=== PATIENT | male | born 1965 | race Caucasian/White ===

== ENCOUNTER 2024-10-08 09:58 | Outpatient (AMB) | payer BC, SELFPAY ==
--- NOTE | 2024-10-08 10:15 | MHC.OFFVIS ---
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 He describes his pain as sharp in nature. His back pain has gotten worse over the last few years in spite of continued non operative treatments. He was evaluated by Dr. Ford from [place] in the past. No surgery was recommended at that time. The patient also reports intermittent discomfort in both of his hips and both of his knees. He denies any fevers or chills. He has undergone bilateral total hip replacement surgeries as well as right total knee replacement surgery. 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* Physical Exam Vital Signs: BMI result Body Mass Index 35.7 Const Other: Well-nourished well-developed very friendly male awake alert and oriented x3 in no acute distress Back/Spine/Pelvis Other: Low back examination shows left-sided paraspinal muscle tenderness, pain with range of motion, positive straight leg raise test on the left at 70 degrees Extrem Other: Bilateral hip examination shows that the surgical incisions are well healed, no erythema, mild tenderness over his bursa, no overlying skin lesions Left knee examination shows a minimal effusion, palpable crepitus with range of motion, pain with range of motion Right knee examination shows that the surgical incision is well healed, no erythema, full active extension and flexion to 120 degrees Results Reviewed Results Reviewed: X-rays of the patient's bilateral hip show total hip arthroplasties in good position with no signs of loosening, no acute bony abnormalities X-ray of the patient's right knee shows a total knee arthroplasty in good position with no signs of loosening, no acute bony abnormalities X-rays of the patient's left knee shows moderate to severe joint space narrowing most significant medial compartment, subchondral sclerosis Assessment & Plan Assessment & Plan (1) Bilateral knee pain: Code(s): M25.561 - Pain in right knee; M25.562 - Pain in left knee Category: Medical (2) Bilateral hip pain: Code(s): M25.551 - Pain in right hip; M25.552 - Pain in left hip Category: Medical (3) Low Back Pain: Code(s): M54.50 - Low back pain, unspecified Plan Mr. Stewart continues to do fairly well after undergoing bilateral total hip replacement surgeries as well as right total knee replacement surgery. He does have left knee pain due to degenerative joint disease. He wishes to hold off on left total knee replacement surgery if at all possible. The patient also has low back pain which radiates into his left leg most likely due to lumbar stenosis and possible disc herniation. Thus, I will send the patient for an MRI of his lumbar spine for further evaluation. I will contact him by phone once the MRI results are available. Feel free to call me at any time should questions regarding his orthopedic management arise. I spent 20 minutes in reviewing the patient's records and imaging studies, seeing the patient and documenting in the medical record. Orders: Orders XR Knee Michael 3V Today M25.561 - Pain in right knee, M25.562 - Pain in left knee XR pelvis 1-2V Today M25.551 - Pain in right hip, M25.552 - Pain in left hip Coding Level of Care Code Est Pt Level 3 (07301) Complex EM visit Add On G2211 Diagnoses Bilateral knee pain M25.561; M25.562 Bilateral hip pain M25.551; M25.552 Low Back Pain M54.50
[2024-10-08 10:19] VITALS: BMI 35.7
--- OUTSIDE RECORDS SUMMARY | 2024-10-08 10:30 | XMS_ITS | Clinical Summary ---
Author Organization [facility] Address [address] [place] [address] Care Team Providers Care Director Global Strategic Publisher Sales Name Role Phone Flynn Stewart Primary Care Provider Social History Tobacco Use Types Packs/Day Years Used Date Smoking Tobacco: Never Assessed Sex and Gender Information Value Date Recorded Sex Assigned at Not on file Legal Sex Male 1:07 AM EDT Gender Identity Not on file Sexual Orientation Not on file Plan of Treatment Health Maintenance Due Date Last Done Comments Hepatitis C Screening 1965 DTaP/Tdap/Td (1 - Tdap) 1983 Hep B (1 of 3 - 19+ 3-dose series) 1984 Pneumococcal 50+ years (1 of 1 - PCV) 2015 Zoster (Shingrix) (1 of 2) 2015 COVID-19 Vaccine (2023-2 5 season) 2023 Influenza (#1) 2024 HPV Vaccine (No Doses Required) Completed Hep A Aged Out No longer eligi ble based on patient's age to complete this topic Hib Aged Out No longer eligi ble based on patient's age to complete this topic Meningococcal ACWY Aged Out No longer eligible based on patient's age to complete this topic Insurance [facility] [place] [address] [facility] Care Teams Director Global Strategic Publisher Sales Relationship Specialty Start Date End Date Flynn Stewart [facility] [address] [place] [address] PCP - General 07/02/09
--- OUTSIDE RECORDS SUMMARY | 2024-10-08 10:30 | XMS_ITS | Encounter Summary ---
Author Organization [facility] Address [address] [place] [address] Care Team Providers Care Percussion Instrument Repairer Name Role Phone Flynn Stewart DO Primary Care Provider [phone] Encounter Details Date Type Department Care Team (Late Contact Info) Description 07/30/2024 Lab Requisition [facility] - Main Lab [address] [facility] [place] [id number] Flip Myles MD [address] [facility] [address] [place] [address] Elevated prostate specific antigen (PSA) Social History Tobacco Use Types Packs/Day Years Used Date Smoking Tobacco: Former Cigarettes Q uit: 11/04/2020 Smokeless Tobacco: Never Alcohol Use Standard Drinks/Week Comments Yes 1 (1 standard drink = 0.6 oz pur e alcohol) Sex and Gender Information Value Date Recorded Sex Assigned at Not on file Legal Sex Male 11:09 AM EST Gender Identity Not on file Sexual Orientation Not on file documented as of this encounter Plan of Treatment Upcoming Encounters Date Type Department Care Team (Late Contact Info) Description 06/30/2025 3:00 PM EDT Office Visit Pulmonolgy - [place] [address] [facility] [address] [place] [address] Mallory Lott MD [address] [facility] [address] [place] [address] documented as of this encounter Procedures Procedure Name Priority Date/Time Associated Diagnosis Comments AP OUTSIDE CONSULT Routine 07/26/2024 Elevated prostate specific antigen (PSA) documented in this encounter Results * Anatomic pathology outside consult (07/26/2024) Final Diagnosis A. Prostate, Left Middle Parks Biopsy: Acinar adenocarcinoma, conventional (usual) type, Maximiliano score 3 + 3 = 6 (Grade group 1). The carcinoma involves 55-60% of the tissue submitted for review and spans approximately 10 mm in greatest dimension in a single core. B. Prostate, Left Lateral Parks Biopsy: Acinar adenocarcinoma, conventional (usual) type, Bend score 3 + 3 = 6 (Grade group 1). The carcinoma involves approximately 50% of the tissue submitted for review and spans approximately 15 mm in greatest dimension in a single core (two discontinuous foci). C. Prostate, Left Middle Middle Biopsy: Acinar adenocarcinoma, conventional (usual) type, Bend score 3 + 3 = 6 (Grade group 1). The carcinoma involves approximately 50% of the tissue submitted for review and spans approximately 13 mm in greatest dimension in a single core (two discontinuous foci). D. Prostate, Left Lateral Middle Biopsy: Acinar adenocarcinoma, conventional (usual) type, Maximiliano score 3 + 3 = 6 (Grade group 1). The carcinoma involves 70-75% of the tissue submitted for review and spans approximately 13 mm in greatest dimension in a single core. E. Prostate, Left Middle Base Biopsy: Atypical small acinar proliferation, suspicious for adenocarcinoma. F. Prostate, Left Lateral Base Biopsy: Atypical small acinar proliferation, suspicious for adenocarcinoma. G. Prostate, Right Middle Parks Biopsy: Atypical small acinar proliferation. H. Prostate, Right Lateral Parks Biopsy: Acinar adenocarcinoma, conventional (usual) type, Bend score 3 + 3 = 6 (Grade group 1). The carcinoma involves 20-25% of the tissue submitted for review and spans approximately 10 mm in greatest dimension in a single core (two small, discontinuous foci). I. Prostate, Right Middle Middle Biopsy: Atypical small acinar proliferation. Note: On hematoxylin and eosin-stained sections, a population of crowded glands of indeterminate nature is identified. A multiplex immunohistochemical study including AMACR, high molecular weight cytokeratin and p63 was performed to further characterize the proliferation of small glands. The glands of interest lack granular cytoplasmic expression of AMACR and most acini show a at least a discontinuous associated basal cell layer. Although the gland crowding and some cytologic features are atypical, the presence of a discontinuous basal cell layer argues against a diagnosis of carcinoma. J. Prostate, Right Lateral Middle Biopsy: Benign prostate tissue. K. Prostate, Right Middle Base Biopsy: Atypical small acinar proliferation. Note: On hematoxylin and eosin-stained sections, a population of crowded glands of indeterminate nature is identified. A multiplex immunohistochemical study including AMACR, high molecular weight cytokeratin and p63 was performed to further characterize the proliferation of small glands. The glands of interest lack granular cytoplasmic expression of AMACR and most acini show a at least a discontinuous associated basal cell layer. Although the gland crowding and some cytologic features are atypical, the presence of a discontinuous basal cell layer argues against a diagnosis of carcinoma. L. Prostate, Right Lateral Base Biopsy: Acinar adenocarcinoma, conventional (usual) type, Maximiliano score 3 + 3 = 6 (Grade group 1). The carcinoma involves less than 5% of the tissue submitted for review and spans less than 1 mm in greatest dimension in a single core. 5 1:47 PM EDT [facility] Comment Cascara Bark Cutter slide(s) from this case have been presented at Anatomic Pathology Intradepartmental Review Conference on 07/31/24 and 08/01/24. 5 1:47 PM EDT [facility]) [facility] Clinical Information Elevated PSA R97.20 PSA: 5.6 (06/17/24) [id number] 5 1:47 PM EDT [facility] Gross Description A. Prostate, Left Middle Parks Biopsy: Received, properly labeled, are two H and E stained slides and two unstained slides. B. Prostate, Left Lateral Parks Biopsy: Received, properly labeled, are two H and E stained slides and two unstained slides. C. Prostate, Left Middle Middle Biopsy: Received, properly labeled, are two H and E stained slides and two unstained slides. D. Prostate, Left Lateral Middle Biopsy: Received, properly labeled, are two H and E stained slides and two unstained slides. E. Prostate, Left Middle Base Biopsy: Received, properly labeled, are two H and E stained slides and two unstained slides. F. Prostate, Left Lateral Base Biopsy: Received, properly labeled, are two H and E stained slides and two unstained slides. G. Prostate, Right Middle Parks Biopsy: Received, properly labeled, are two H and E stained slides and two unstained slides. H. Prostate, Right Lateral Parks Biopsy: Received, properly labeled, are two H and E stained slides and two unstained slides. I. Prostate, Right Middle Middle Biopsy: Received, properly labeled, are two H and E stained slides and two unstained slides. J. Prostate, Right Lateral Middle Biopsy: Received, properly labeled, are two H and E stained slides and two unstained slides. K. Prostate, Right Middle Base Biopsy: Received, properly labeled, are two H and E stained slides and two unstained slides. L. Prostate, Right Lateral Base Biopsy: Received, properly labeled, are two H and E stained slides and two unstained slides. /rc 5 1:47 PM EDT [facility] Disclaimer Unless otherwise specified, all tissue is 10% NB formalin fixed and paraffin embedded. Technical pathology services provided by [facility] at [address] [place] [address] [address], [place] [address] (CLIA #[id number]/Sarah Forbes MD, Services Tech) 1:47 PM EDT [facility] Tissue Prostate / Unknown 07/26/20242024 9:04 AM EDT Tissue specimen (specimen) Prostate / Unknown 07/26/2024 07/30/2024 9: 06 AM EDT Tissue specimen (specimen) Prostate / Unknown 07/26/2024 07/30/2024 9: 06 AM EDT Tissue specimen (specimen) Prostate / Unknown 07/26/2024 07/30/2024 9: 06 AM EDT Tissue specimen (specimen) Prostate / Unknown 07/26/2024 07/30/2024 9: 06 AM EDT Tissue specimen (specimen) Prostate / Unknown 07/26/2024 07/30/2024 9: 06 AM EDT Tissue specimen (specimen) Prostate / Unknown 07/26/2024 07/30/2024 9: 06 AM EDT Tissue specimen (specimen) Prostate / Unknown 07/26/2024 07/30/2024 9: 06 AM EDT Tissue specimen (specimen) Prostate / Unknown 07/26/2024 07/30/2024 9: 06 AM EDT Tissue specimen (specimen) Prostate / Unknown 07/26/2024 07/30/2024 9: 06 AM EDT Tissue specimen (specimen) Prostate / Unknown 07/26/2024 07/30/2024 9: 06 AM EDT Tissue specimen (specimen) Prostate / Unknown 07/26/2024 07/30/2024 9: 06 AM EDT us Flip Myles MD LAB PATHOLOGY ORDERABLES Final Result [facility] [address] [place] [address], documented in this encounter Visit Diagnoses Diagnosis Elevated prostate specific antigen (PSA) documented in this encounter Care Teams Percussion Instrument Repairer Relationship Specialty Start Date End Date Flynn Stewart DO [address] [place], [place] PCP - General Family Medicine 09/07/17 documented as of this encounter
--- OUTSIDE RECORDS SUMMARY | 2024-10-08 10:30 | XMS_ITS | Clinical Summary ---
Author Organization [facility] Address [address] [id number] Care Team Providers Care Slip Box Changer Name Role Phone Flynn Stewart MD Primary Care Provider [phone] Allergies Active Allergy Reactions Criticality Noted Date Comments Bee Pollen Swelling,Other (See Comments) Medium 03/12/2021 Bee sting swelling at site Medications Medication Sig Dispensed Refills Start Date End Date Status Cetirizine HCl (ZyrTEC ALLERGY) 10 MG CAPS daily. 0 Active amoxicillin (AMOXIL) 500 MG tablet Take 4 tabs 1 hour prior to dental procedure 20 tablet 3 05/06/2021 Active rosuvastatin (CRESTOR) tablet 5 mg Take 1 tablet (5 mg total) by mouth daily. 0 07/15/2022 Active Active Problems Problem Noted Date Diagnosed Date Spinal stenosis of lumbar re gion with neurogenic claudication 10/13/2022 Lumbar spondylosis 10/13/2022 Arthritis of left acromioclavicular joint 2019 Internal impingement of left shoulder 08/01/2019 Greater trochanteric bursitis of left hip 2017 Immunizations Name Administration Dates Next Due Covid-19 (Moderna 12+) 100mcg/0.5mL dosage 01/23 Covid-19 (Pfizer) Dilution Required 06/10/2020,0 05/20/2020 Social History Tobacco Use Types Packs/Day Years Used Date Smoking Tobacco: Former Cigarettes 1 40 Q uit: 11/2020 Smokeless Tobacco: Never Alcohol Use Standard Drinks/Week Comments Yes 1 (1 standard drink = 0.6 oz pur e alcohol) Sex and Gender Information Value Date Recorded Sex Assigned at Male 04/01/2021 8:33 AM EST Gender Identity Male 04/01/2021 8:33 AM EST Sexual Orientation Not on file Job Start Date Occupation Industry Not on file Not on file Not on file Last Filed Vital Signs Vital Sign Reading Time Taken Comments Blood Pressure 132/77 10/13/2022 9:24 AM EDT Pulse 58 10/13/2022 9:24 AM EDT Temperature 36.8 C (98.3 F) 04/23/2021 6:08 AM EST Respiratory Rate 16 04/23/2021 8:03 AM EST Oxygen Saturation 97% 04/23/2021 8:03 AM EST Inhaled Oxygen Concentration - - Weight 103.4 kg (228 lb) 10/13/2022 9:24 AM EDT Height 172.7 cm (5' 8 ) 10/13/2022 9:24 AM EDT Body Mass Index 34.67 10/13/2022 9:24 AM EDT Plan of Treatment Health Maintenance Due Date Last Done Comments Hepatitis B Vaccines (1 of 3 - 3-dose series) 1965 Hepatitis C Screening 1965 Lung Cancer Screening (Low Dose CT) 1965 Depression Screening 1977 BMI Counseling 1983 Preventative Health Evaluation 1983 Colon Cancer Screening (Colonoscopy) 2010 Shingrix-Zoster Vaccine (1 o f 2) 2015 COVID-19 Vaccine (2023-2 5 season) 2023 01/23/2021, 06/10/2020, 05/20/2020 Influenza Vaccine (#1) 2024 2, 03/18/2012 DTap / Tdap / Td (2 - Td or Tdap) 08/19/2031 08/18/2021 Pneumococcal Vaccine Aged Out No long er eligible based on patient's age to complete this topic RSV Ped < 20 months Aged Out No longe r eligible based on patient's age to complete this topic Medical Devices Implanted Type Area Veterinary Microbiologist Device Identifier Shelf Expiration Date Model / Serial / Lot Cement Bone Surg Simplex Radiopq Stry-How [id number] 092 - [id number] Implanted:Qty: 1 on 04/22/2021 by Saul Woo MD at [facility] [id number] 02/02/2023 6191-1-010 / / [id number] Cement Bone Surg Simplex Radiopq Stry-Howm [id number] [id number] - [id number] Implanted:Qty: 1 on 04/22/2021 by Saul Woo MD at [facility] [id number] 02/02/2023 6191-1-010 / / [id number] Knee Fem Ps Trthln Sz 4 Rt Stry-Howm [id number] 740 - [id number] Implanted:Qty: 1 on 04/22/2021 by Saul Woo MD at [facility] and [facility] [employer] [id number] 01/26/2026 5515-F-[id number] / / [id number] Knee Baseplt Tib Cmnt Sz4 Stry-Howm [id number] 190 - [id number] Implanted:Qty: 1 on 04/22/2021 by Saul Woo MD at [facility] and [facility] [employer] [id number] 12/06/2025 5520-B-400 / / [id number] Knee Tib Insrt Ps-X3 [id number] Stry-Howm [id number] 750 - [id number] Implanted:Qty: 1 on 04/22/2021 by Saul Woo MD at [facility] and [facility] [employer] [id number] 11/23/2025 5532-G-[id number] / / [id number] Knee Patella Asym X3 29x9mm Stry-Howm [id number] 282 - [id number] Implanted:Qty: 1 on 04/22/2021 by Saul Woo MD at [facility] and [facility] [employer] [id number] 11/24/2025 5551-G-299 / / [id number] Peg Fix Femoral Distal Stry-Howm [id number] 704 - [id number] Implanted:Qty: 1 on 04/22/2021 by Saul Woo MD at [facility] and [facility] [employer] [id number] 06/29/2025 5575-X-000 / / [id number] Advance Directives For more information, please contact: [phone] Latest Code Status on File Code Status Date Activated Date Inactivated Comments Full Code 04/22/2021 12:39 PM 04/23/2021 5:56 PM This code status was ascertained in the following way: discussion with patient . Code Status History Code Status Date Activated Date Inactivated Comments Full Code 04/22/2021 7:26 AM 04/22/2021 12:39 PM This code status was ascertained in the following way: discussion with patient . Care Teams Slip Box Changer Relationship Specialty Start Date End Date Flynn Stewart MD [address] [place] [address] PCP - General Family Medicine 09/07/17
--- OUTSIDE RECORDS SUMMARY | 2024-10-08 10:30 | XMS_ITS ---
Author Name [facility] History of Medication Use Medication Directions Dispensed Refills Start Date End Date Stat us amoxicillin 500 mg tablet Take 4 tabs 1 hour prior to dental procedure. 07/20/2022 active rosuvastatin (CRESTOR) tablet 5 mg Take 1 tablet (5 mg total) by mouth daily. 07/15/2022 active amoxicillin (AMOXIL) 500 MG tablet Take 4 tabs 1 hour prior to dental procedure 05/06/2021 active cephalexin 500 mg capsule TAKE 1 CAPSULE BY MOUTH FOUR TIMES DAILY FOR 7 DAYS active cephalexin 500 mg capsule TAKE 1 CAPSULE BY MOUTH FOUR TIMES DAILY FOR 7 DAYS active omeprazole 20 mg tablet,delayed release TAKE 1 TABLET BY MOUTH EVERY DAY 60 MINUTES BEFORE FIRST MEAL OF THE DAY active rosuvastatin 5 mg tablet TAKE 1 TABLET BY MOUTH DAILY active Cetirizine HCl (ZyrTEC ALLERGY) 10 MG CAPS daily. active Allergies Allergen Reaction Severity Comment Documented Date Source Statu s BEE POLLEN OTHER (SEE COMMENTS) Bee sting swelling at site 03/12/2021 [facility] active Problems Problem Status Onset Date Problem Type Date of Resoluti on Source Greater trochanteric bursitis of left hip [facility] 2017[facility]10[facility]11 [facility] Sp[facility] stenosis of lumbar region with neurogenic claudication active 2022-10-13 [facility] Internal impingement of left shoulder active 2019-08-01 [facility] Lumbar spondylosis active 2022-10-13 [facility]Act [facility] Arthritis of left acromioclavicular joint active 2019-08-01 ProblemAct [facility] Epidural lipomatosis active 2022-09-05 ProblemAct [facility] Spinal stenosis of lumbar region active 2022-08-23 ProblemAct [facility] Degenerative scoliosis active 2022-09-05 ProblemAct [facility] Low back pain active 2022-08-23 [facility]Act [facility] Immunizations Vaccine Date Source Lot Number Status Covid-19 (Moderna 12+) 100mcg/0.5mL dosage 01/23/2021 [facility] completed Covid-19 (Pfizer) Dilution Required 06/10/2020 [facility] completed Covid-19 (Pfizer) Dilution Required 05/20/2020 [facility] completed Encounters Encounter Type Encounter Reason Primary Diagnosis Location Date Ambulatory Dorsalgia, unspecified Dorsalgia, unspecified [facility] 12/21/2022 Ambulatory Dorsalgia, unspecified Dorsalgia, unspecified [facility] 12/02/2022 Ambulatory Dorsalgia, unspecified Dorsalgia, unspecified [facility] 11/18/2022 Ambulatory Dorsalgia, unspecified Dorsalgia, unspecified [facility] 11/04/2022 Ambulatory Dorsalgia, unspecified Dorsalgia, unspecified [facility] 10/28/2022 Ambulatory Dorsalgia, unspecified Dorsalgia, unspecified [facility] 10/21/2022 Ambulatory Dorsalgia, unspecified Dorsalgia, unspecified [facility] 10/13/2022 Ambulatory [facility] 10/02/2022 Ambulatory [facility] 09/30/2022 Ambulatory [facility] 09/30/2022 Ambulatory [facility] 09/14/2022 Ambulatory [facility] 09/08/2022 Ambulatory [facility] 09/07/2022 Ambulatory [facility] 08/30/2022 Ambulatory [facility] 08/24/2022 Ambulatory [facility] 08/22/2022 Ambulatory [facility] 08/16/2022 Ambulatory [facility] 08/16/2022 Ambulatory [facility] 07/22/2022 Ambulatory [facility] 07/20/2022 Ambulatory [facility] 07/20/2022 Ambulatory [facility] 07/20/2022 Ambulatory [facility] 07/18/2022 Ambulatory [facility] 07/16/2022 Ambulatory [facility] 07/16/2022 Ambulatory [facility] 07/16/2022 Care Team Organization Name Specialty Phone Email Start Date End Da te 10/13/2022 06/14/2024 [facility] 10/13/202210/04 [facility] 10/0410/13/2022
== END 2024-10-08 11:03 | disposition home or self-care (01) ==
LOC: HO.HOS 09:59
PROVIDERS: PCP Family Medicine; Visit Provider Orthopaedic Surgery
DX: M25.561 Pain in right knee (principal); M25.562 Pain in left knee; M25.551 Pain in right hip; M25.552 Pain in left hip; M54.50 Low back pain, unspecified
CPT/HCPCS: 99203

== ENCOUNTER → 2024-10-08 10:03 | Outpatient (BNV) | payer BC, SELFPAY | PROVIDERS: Visit Provider Radiology Diagnostic Radiology | DX: M17.12 Unilateral primary osteoarthritis, left knee (principal); Z96.643 Presence of artificial hip joint, bilateral | CPT/HCPCS: 72170; 73562 ==

== ENCOUNTER 2024-10-08 10:44 | Outpatient (REF) | payer BC, SELFPAY ==
--- NOTE | ~2024-10-08 | XR_ITS ---
Exam: X-ray, bilateral knees.XR KNEE 3 VIEWS BILATERAL TECHNIQUE: Three views lower extremity joint, bilateral knees INDICATION: Bilateral knee pain COMPARISON: None available. FINDINGS: RIGHT KNEE: Total knee arthroplasty has been performed. There is no joint effusion. Hardware is intact and alignment without evidence of lucency along the bone metal interface. Mild to moderate vascular calcifications are evident. LEFT KNEE: There is severe narrowing of the medial compartment and moderate narrowing of the lateral compartment. There is mild lateral subluxation of the tibial plateau. There is no joint effusion. There are tricompartmental marginal osteophytes that are small and medium in size. There is stippled calcification in the extruded medial meniscus visible on the AP view There are [id number] vascular calcifications. XR/XR Knee Michael 3V IMPRESSION: Right knee: Unremarkable status post total knee arthroplasty. 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 Electronically signed by: Suresh Rea MD 10/08/2024 10:32 AM EDT
--- NOTE | ~2024-10-08 | XR_ITS ---
CLINICAL HISTORY: M25.551 - Pain in right hip 2 view pelvis Comparison: None provided Findings: Bilateral hip arthroplasty. No acute fracture or dislocation. No significant arthritic changes. Soft tissues are unremarkable. IMPRESSION: 1. No acute findings. This document has been electronically signed by: Andreina Chen MD on 10/08/2024 15:28:20
== END 2024-10-08 10:45 | disposition home or self-care (01) ==
LOC: HO.HOSX 10:44
PROVIDERS: Visit Provider Orthopaedic Surgery
DX: M25.561 Pain in right knee (principal); M25.562 Pain in left knee; M25.551 Pain in right hip; M25.552 Pain in left hip; M54.50 Low back pain, unspecified; M25.462 Effusion, left knee; Z96.643 Presence of artificial hip joint, bilateral; Z96.651 Presence of right artificial knee joint
CPT/HCPCS: 72170; 73562